=== PATIENT | female | born 1945 | race Caucasian/White ===

== ENCOUNTER → 2018-09-18 | Outpatient (CLI) | payer MEDICARE, OTHER | LOC: DL.CLIN 11:00 | DX: L98.9 Disorder of the skin and subcutaneous tissue, unspecified (principal) | CPT/HCPCS: 99212 ==

== ENCOUNTER 2019-06-24 21:44 | Emergency (ER) | payer MEDICARE, OTHER ==
[2019-06-24] MEDS ORDERED: Doxycycline 100 MG Cap PO ONE (21:45)
[2019-06-24] MEDS ORDERED: Ibuprofen 600 MG Tab PO ONE (23:39)
[2019-06-24] MEDS ORDERED: Acetaminophen 325 MG Tab PO ONE (23:47)
[2019-06-25] MEDS ORDERED: Ibuprofen 600 MG Tab PO ONE (00:10)
[2019-06-25 00:17] LABS: ANION GAP 13.6; CHLORIDE,CL 100 mmol/L (101-111); SODIUM,NA 132 mmol/L (135-145)
--- NOTE | 2019-06-25 01:10 | EDM.PDOC ---
ED HPI GENERAL MEDICAL PROBLEM - General Chief Complaint: General Stated Complaint: WEAKNESS Time Seen by Provider: 06/24/19 23:15 Source of Information: Reports: Patient, Significant Other History Limitations: Reports: No Limitations - History of Present Illness INITIAL COMMENTS - FREE TEXT/NARRATIVE: 73-year-old female presents to the ER with bilateral weakness of the lower extremities. Patient's reports patient had supper with him 4 hours ago and sat down to watch television. Patient got up to use the bathroom and could not stand on her feet. Patient was helped to the bathroom by her spouse but could not even get out of the toilet pot. Patient's also reports patient was busy 2 days ago making the family [employer] dinner and rested all day the day after. Patient denies any upper respiratory infections. Bilateral lower extremity weakness began 4 hours ago. Patient reports she was not aware she had a fever. Patient reports a red spot on her left victor for over a year. Patient reports she was told it is okay. She denies any fall, injury or trauma. Denies any history of MRSA. - Related Data Allergies Allergy/AdvReac Type Severity Reaction Status Date / Time No Known Allergies Allergy Verified 06/24/19 23:47 Past Medical History [employer] EXTERNAL History: Reports: Musculoskeletal History: Reports: Back Pain, Chronic - Past Surgical History Cardiovascular Surgical History: Reports: Other (See Below) Other Cardiovascular Surgeries/Procedures: Aortic valve Social & Family History - Family History Cardiac: Reports: Other (See Below) Other Cardiac Family History: aortic valve placement mother - Tobacco Use Smoking Status *Q: Never Smoker Second Hand Smoke Exposure: No - Caffeine Use Caffeine Use: Reports: Coffee - Alcohol Use Date of Last Drink: 06/20/19 - Recreational Drug Use Recreational Drug Use: No ED ROS GENERAL - Review of Systems Review Of Systems: See Below Constitutional: Reports: Fever, Malaise, Weakness HEENT: Reports: No Symptoms Respiratory: Reports: No Symptoms Cardiovascular: Reports: No Symptoms Endocrine: Reports: No Symptoms GI/Abdominal: Reports: No Symptoms : Reports: No Symptoms Musculoskeletal: Reports: Other (Bilateral LE weakness) Skin: Reports: Erythema (Red area on the left victor) Neurological: Reports: Difficulty Walking, Weakness, Gait Disturbance Psychiatric: Reports: No Symptoms Hematologic/Lymphatic: Reports: No Symptoms Immunologic: Reports: No Symptoms ED EXAM, GENERAL - Physical Exam Exam: See Below Exam Limited By: No Limitations General Appearance: Alert, Moderate Distress, Obese Eye Exam: Bilateral Eye: EOMI, PERRL Ears: Normal External Exam, Normal Canal, Hearing Grossly Normal, Normal TMs Ear Exam: Bilateral Ear: Auricle Normal, Canal Normal, TM normal Nose: Normal Inspection, Normal Mucosa, No Blood Throat/Mouth: Normal Inspection, Normal Lips, Normal Teeth, Normal Gums, Normal Oropharynx, Normal Voice, No Airway Compromise Head: Atraumatic, Normocephalic Neck: Normal Inspection, Supple, Non-Tender, Full Range of Motion Respiratory/Chest: No Respiratory Distress, Lungs Clear, Normal Breath Sounds, No Accessory Muscle Use, Chest Non-Tender Cardiovascular: Normal Peripheral Pulses, Regular Rate, Rhythm, No JVD, No Rub, Systolic Murmur Peripheral Pulses: 3+: Radial (L), Radial (R), Posterior Tibial (L), Posterior Tibial (R), Dorsalis Pedis (L), Dorsalis Pedis (R) GI/Abdominal: Normal Bowel Sounds, Soft, Non-Tender, No Organomegaly, No Distention, No Abnormal Bruit, No Mass Extremities: Normal Inspection, Non-Tender, Pedal Edema ( right LE edema 1 +), Increased Warmth (on the left victor), Redness Neurological: Alert, Oriented, CN II-XII Intact, Normal Cognition, Abnormal Gait (weakness) Psychiatric: Normal Affect, Normal Mood Skin Exam: Warm, Intact, Increased Warmth Lymphatic: No Adenopathy Course - Vital Signs Last Recorded V/S: Last Vital Signs Temp 100.1 F 06/25/19 01:08 Pulse 87 06/25/19 01:08 Resp 19 06/25/19 01:08 BP 128/69 06/25/19 01:08 Pulse Ox 96 06/25/19 01:08 - Orders/Labs/Meds Orders: Active Orders 24 hr Category Date Time Status CULTURE BLOOD [BC] Stat Lab 06/24/19 23:30 Received CULTURE BLOOD [BC] Stat Lab 06/24/19 23:55 Received CULTURE STREP A CONFIRMATION [RM] Stat Lab 06/24/19 23:40 Results STREP SCRN A RAPID W CULT CONF [RM] Stat Lab 06/24/19 23:40 Results Blood Culture x2 Reflex Set [OM.PC] Stat Oth 06/24/19 23:35 Ordered Labs: Laboratory Tests 06/24/19 06/24/19 06/24/19 Range/Units 23:30 23:30 23:30 WBC 11.6 H (5.0-10.0) 10^3/uL RBC 4.42 (4.2-5.4) 10^6/uL Hgb 13.4 (12.0-16.0) g/dL Hct 37.4 (37.0-47.0) % MCV 84.6 (80-100) fL MCH 30.3 (27.0-34.0) pg MCHC 35.8 H (33.0-35.0) g/dL Plt Count 172 (150-450) 10^3/uL Neut % (Auto) 87.1 H (42.2-75.2) % Lymph % (Auto) 4.9 L (20.5-50.1) % [place] % (Auto) 7.8 (2-8) % Eos % (Auto) 0.0 L (1.0-3.0) % Baso % (Auto) 0.2 (0.0-1.0) % PT 20.3 H (9.0-12.0) SEC INR 2.1 H (0.9-1.2) D-Dimer, Quantitative (0-400) ng/mL Sodium 132 L (135-145) mmol/L Potassium 3.6 (3.6-5.0) mmol/L Chloride 100 L (101-111) mmol/L Carbon Dioxide 22.0 (21.0-31.0) mmol/L Anion Gap 13.6 BUN 15 (7-18) mg/dL Creatinine 0.9 (0.6-1.3) mg/dL Est Cr Clr Drug Dosing 58.18 mL/min Estimated GFR (MDRD) > 60 BUN/Creatinine Ratio 16.66 Glucose 173 H (74-105) mg/dL Lactic Acid (0.5-2.2) mmol/L Calcium 8.6 (8.4-10.2) mg/dl Total Bilirubin 1.7 H (0.2-1.0) mg/dL AST 23 (10-42) IU/L ALT 11 (10-60) IU/L Alkaline Phosphatase 47 (42-121) IU/L C-Reactive Protein (0.0-1.3) mg/dL Total Protein 7.2 (6.7-8.2) g/dl Albumin 4.0 (3.2-5.5) g/dl Globulin 3.2 Albumin/Globulin Ratio 1.25 Urine Color (YELLOW) Urine Appearance (CLEAR) Urine pH (5.0-9.0) Ur Specific [place] (1.005-1.030) Urine Protein (NEGATIVE) Urine Glucose (UA) (NEGATIVE) Urine Ketones (NEGATIVE) Urine Occult Blood (NEGATIVE) Urine Nitrite (NEGATIVE) Urine Bilirubin (NEGATIVE) Urine Urobilinogen (0.2-1.0) mg/dL Ur Leukocyte Esterase (NEGATIVE) Urine RBC /HPF Urine WBC (0-5/HPF) /HPF Ur Epithelial Cells (NOT SEEN) /HPF Amorphous Sediment (NOT SEEN) /HPF Urine Bacteria (0-FEW/HPF) /HPF Urine Mucus (NOT SEEN) /LPF 06/24/19 06/24/19 06/24/19 Range/Units 23:30 23:30 23:30 WBC (5.0-10.0) 10^3/uL RBC (4.2-5.4) 10^6/uL Hgb (12.0-16.0) g/dL Hct (37.0-47.0) % MCV (80-100) fL MCH (27.0-34.0) pg MCHC (33.0-35.0) g/dL Plt Count (150-450) 10^3/uL Neut % (Auto) (42.2-75.2) % Lymph % (Auto) (20.5-50.1) % [place] % (Auto) (2-8) % Eos % (Auto) (1.0-3.0) % Baso % (Auto) (0.0-1.0) % PT (9.0-12.0) SEC INR (0.9-1.2) D-Dimer, Quantitative 176 (0-400) ng/mL Sodium (135-145) mmol/L Potassium (3.6-5.0) mmol/L Chloride (101-111) mmol/L Carbon Dioxide (21.0-31.0) mmol/L Anion Gap BUN (7-18) mg/dL Creatinine (0.6-1.3) mg/dL Est Cr Clr Drug Dosing mL/min Estimated GFR (MDRD) BUN/Creatinine Ratio Glucose (74-105) mg/dL Lactic Acid 1.1 (0.5-2.2) mmol/L Calcium (8.4-10.2) mg/dl Total Bilirubin (0.2-1.0) mg/dL AST (10-42) IU/L ALT (10-60) IU/L Alkaline Phosphatase (42-121) IU/L C-Reactive Protein 8.4 H (0.0-1.3) mg/dL Total Protein (6.7-8.2) g/dl Albumin (3.2-5.5) g/dl Globulin Albumin/Globulin Ratio Urine Color (YELLOW) Urine Appearance (CLEAR) Urine pH (5.0-9.0) Ur Specific [place] (1.005-1.030) Urine Protein (NEGATIVE) Urine Glucose (UA) (NEGATIVE) Urine Ketones (NEGATIVE) Urine Occult Blood (NEGATIVE) Urine Nitrite (NEGATIVE) Urine Bilirubin (NEGATIVE) Urine Urobilinogen (0.2-1.0) mg/dL Ur Leukocyte Esterase (NEGATIVE) Urine RBC /HPF Urine WBC (0-5/HPF) /HPF Ur Epithelial Cells (NOT SEEN) /HPF Amorphous Sediment (NOT SEEN) /HPF Urine Bacteria (0-FEW/HPF) /HPF Urine Mucus (NOT SEEN) /LPF 06/25/19 Range/Units 01:02 WBC (5.0-10.0) 10^3/uL RBC (4.2-5.4) 10^6/uL Hgb (12.0-16.0) g/dL Hct (37.0-47.0) % MCV (80-100) fL MCH (27.0-34.0) pg MCHC (33.0-35.0) g/dL Plt Count (150-450) 10^3/uL Neut % (Auto) (42.2-75.2) % Lymph % (Auto) (20.5-50.1) % [place] % (Auto) (2-8) % Eos % (Auto) (1.0-3.0) % Baso % (Auto) (0.0-1.0) % PT (9.0-12.0) SEC INR (0.9-1.2) D-Dimer, Quantitative (0-400) ng/mL Sodium (135-145) mmol/L Potassium (3.6-5.0) mmol/L Chloride (101-111) mmol/L Carbon Dioxide (21.0-31.0) mmol/L Anion Gap BUN (7-18) mg/dL Creatinine (0.6-1.3) mg/dL Est Cr Clr Drug Dosing mL/min Estimated GFR (MDRD) BUN/Creatinine Ratio Glucose (74-105) mg/dL Lactic Acid (0.5-2.2) mmol/L Calcium (8.4-10.2) mg/dl Total Bilirubin (0.2-1.0) mg/dL AST (10-42) IU/L ALT (10-60) IU/L Alkaline Phosphatase (42-121) IU/L C-Reactive Protein (0.0-1.3) mg/dL Total Protein (6.7-8.2) g/dl Albumin (3.2-5.5) g/dl Globulin Albumin/Globulin Ratio Urine Color Dark yellow (YELLOW) Urine Appearance Slightly cloudy (CLEAR) Urine pH 5.0 (5.0-9.0) Ur Specific [place] >= 1.030 (1.005-1.030) Urine Protein 30 H (NEGATIVE) Urine Glucose (UA) 100 H (NEGATIVE) Urine Ketones >=160 H (NEGATIVE) Urine Occult Blood Trace-intact H (NEGATIVE) Urine Nitrite Negative (NEGATIVE) Urine Bilirubin Small H (NEGATIVE) Urine Urobilinogen 1.0 (0.2-1.0) mg/dL Ur Leukocyte Esterase Small H (NEGATIVE) Urine RBC 0-5 /HPF Urine WBC 20-30 H (0-5/HPF) /HPF Ur Epithelial Cells Moderate H (NOT SEEN) /HPF Amorphous Sediment Few (NOT SEEN) /HPF Urine Bacteria Few (0-FEW/HPF) /HPF Urine Mucus Few H (NOT SEEN) /LPF Meds: Medications Discontinued Medications Generic Name Dose Route Start Last Admin Trade Name Jelani PRN Reason Stop Dose Admin Acetaminophen 650 mg 06/24/19 23:47 06/24/19 23:52 Tylenol PO 06/24/19 23:48 650 mg NOW ONE Administration Doxycycline Hyclate Confirm 06/25/19 02:15 06/25/19 03:55 Vibramycin Administered 06/25/19 02:16 Not Given Dose 200 mg .ROUTE .STK-MED ONE Vancomycin HCl 1 gm/ Sodium 250 mls @ 167 mls/hr 06/25/19 02:03 06/25/19 02: 18 Chloride IV 06/25/19 03:32 167 mls/hr ONETIME ONE Administration Ibuprofen 600 mg 06/24/19 23:39 06/24/19 23:54 Motrin PO 06/24/19 23:40 Not Given ONETIME ONE Ibuprofen 600 mg 06/25/19 00:10 06/25/19 00:14 Motrin PO 06/25/19 00:11 600 mg ONETIME ONE Administration - Radiology Interpretation Free Text/Narrative:: PROCEDURE INFORMATION: Exam: XR Chest, 1 View Exam date and time: 06/25/2019 12:28 AM Age: 73 years old Clinical indication: Patient HX: Sudden onset of fever TECHNIQUE: Imaging protocol: XR of the chest Views: 1 view. COMPARISON: No relevant prior studies available. Findings: The heart size is normal as are the mediastinal and hilar contours. The patient is status post median sternotomy. The pulmonary vessels are normal. The lungs are well expanded and clear. There are no pleural effusions. I see no evidence of pneumothorax or acute rib fracture. Impression: No acute cardiopulmonary disease process identified on this single portable view. - Re-Assessments/Exams Free Text/Narrative Re-Assessment/Exam: 73-year-old female who presents with her spouse complaining of bilateral weakness. Noted to have a fever of 101.3. Tylenol 1000 mg administered with no relief. Ibuprofen 600 mg administered with moderate relief. Sepsis protocol initiated and lab results reviewed the patient. Chest x-ray negative. Reviewed patient care with who was in agreement for patient to be treated for cellulitis with Vancomycin 1 g and Doxycycline. Patient in agreement with this plan as she has decline hospital admission. Medications administered with RX for doxycycline sent with the patient. Departure - Departure Time of Disposition: 03:28 Disposition: Home, Self-Care 01 Condition: Fair Clinical Impression: Hyponatremia Cellulitis Qualifiers: Site of cellulitis: extremity Site of cellulitis of extremity: lower extremity Laterality: left Qualified Code(s): L03.116 - Cellulitis of left lower limb - Discharge Information *PRESCRIPTION DRUG MONITORING PROGRAM REVIEWED*: No *COPY OF PRESCRIPTION DRUG MONITORING REPORT IN PATIENT BIMAL: No Instructions: Hyponatremia, [id number], Cellulitis, Adult, [id number] Forms: ED Department Discharge Additional Instructions: Follow up with PCP in two days Sepsis Event Note - Evaluation Sepsis Screening Result: No Definite Risk - Focused Exam Date Exam was Performed: 06/25/19 Time Exam was Performed: 15:00 - My Orders Last 24 Hours: My Active Orders 06/24/19 23:30 CULTURE BLOOD [BC] Stat 06/24/19 23:35 Blood Culture x2 Reflex Set [OM.PC] Stat 06/24/19 23:40 CULTURE STREP A CONFIRMATION [RM] Stat STREP SCRN A RAPID W CULT CONF [RM] Stat 06/24/19 23:55 CULTURE BLOOD [BC] Stat - Assessment/Plan Last 24 Hours: My Active Orders 06/24/19 23:30 CULTURE BLOOD [BC] Stat 06/24/19 23:35 Blood Culture x2 Reflex Set [OM.PC] Stat 06/24/19 23:40 CULTURE STREP A CONFIRMATION [RM] Stat STREP SCRN A RAPID W CULT CONF [RM] Stat 06/24/19 23:55 CULTURE BLOOD [BC] Stat
[2019-06-25] MEDS ORDERED: Doxycycline 100 MG Cap ONE (02:15)
== END 2019-06-25 04:00 | disposition home or self-care (01) ==
LOC: DL.ED 21:44
DX: L03.116 Cellulitis of left lower limb (principal); E87.1 Hypo-osmolality and hyponatremia; M54.9 Dorsalgia, unspecified; G89.29 Other chronic pain; Z95.2 Presence of prosthetic heart valve
CPT/HCPCS: 36415; 71045; 80053; 81001; 83605; 85025; 85379; 85610; 86140; 87040; 87081; 87430; 87804; 96365; 96366; 99285; A9270; J3370; J7050

== ENCOUNTER 2022-04-24 13:29 | Emergency (ER) | payer MEDICARE, OTHER ==
[2022-04-24 14:34] LABS: CHLORIDE,CL 105 mmol/L (98-107); ESTIMATED GFR 71 mL/min (>=60); SODIUM,NA 141 mmol/L (136-145)
[2022-04-24 14:35] LABS: ACETAMINOPHEN 0 ug/mL (10-30 (Therapeutic))
[2022-04-24 14:48] LABS: CORONAVIRUS COVID-19 NAA NEGATIVE (NEGATIVE)
[2022-04-24 16:27] LABS: AMPHETAMINES,URINE NEGATIVE (NEGATIVE); BARBITURATES,URINE NEGATIVE (NEGATIVE); BENZODIAZEPINE,URINE NEGATIVE (NEGATIVE); MDMA (ECSTASY), URINE NEGATIVE (NEGATIVE); METHADONE,URINE NEGATIVE (NEGATIVE); METHAMPHETAMINES,URINE NEGATIVE (NEGATIVE); OPIATES,URINE NEGATIVE (NEGATIVE); OXYCODONE,URINE NEGATIVE (NEGATIVE); PHENCYCLIDINE,URINE NEGATIVE (NEGATIVE); TCA,URINE NEGATIVE (NEGATIVE)
== END 2022-04-24 16:46 | disposition home or self-care (01) ==
LOC: DL.ED 13:29
DX: R41.0 Disorientation, unspecified (principal); Z79.899 Other long term (current) drug therapy; Z20.822 Contact with and (suspected) exposure to COVID-19
CPT/HCPCS: 0240U; 36415; 70450; 80053; 80143; 80305; 80307; 81003; 82140; 82150; 83605; 83690; 83735; 85025; 99285

== ENCOUNTER 2022-05-23 09:35 | Emergency (ER) | payer MEDICARE, OTHER ==
[2022-05-23 10:45] LABS: ANION GAP 12.2 mEq/L (7-13); CHLORIDE,CL 104 mmol/L (98-107); SODIUM,NA 139 mmol/L (136-145)
[2022-05-23 10:46] LABS: ESTIMATED GFR 61 mL/min (>=60)
== END 2022-05-23 12:49 | disposition home or self-care (01) ==
LOC: DL.ED 09:35
DX: Z73.6 Limitation of activities due to disability (principal); Z79.899 Other long term (current) drug therapy
CPT/HCPCS: 36415; 80053; 81003; 83605; 84484; 85025; 85610; 93005; 99285; C1758